=== PATIENT | female | born 1980 | race Caucasian/White ===

== ENCOUNTER 2019-05-15 05:38 | Day surgery (SDC) | payer BC ==
[2019-05-15] MEDS ORDERED: Morphine 4 MG/ML VIAL ONE ×2 (05:53→12:01)
[2019-05-15] MEDS ORDERED: Ketorolac Tromethamine 30 MG/ML VIAL ONE (05:53)
[2019-05-15] MEDS ORDERED: Ondansetron PF 4 MG/2 ML Vial ONE ×2 (05:53→12:01)
[2019-05-15 06:18] LABS: BHCG - Serum Negative (NEGATIVE); Pregs Control Background? CLEAR/WHITE (CLR/WHITE); Pregs Control Bar Appear? YES (CONTROL BAR)
[2019-05-15 06:19] LABS: Mean Corpuscular HGB CONC 33.6 g/dL (32.0-36.0); Mean Corpuscular Hemoglobin 29.3 pg (27.0-31.0); Mean Corpuscular Volume 87.2 fL (78.0-98.0); Mean Platelet Volume 6.2 fL (7.4-10.4); Platelet Count 309 thou/uL (130-400); RBC Distribution Width 11.6 % (11.5-14.5); Red Blood Cell (RBC) Count 4.43 mill/uL (4.20-5.40); White Blood Cell (WBC) Count 17.6 thou/uL (4.8-10.8)
[2019-05-15 06:33] LABS: ALT (SGPT) 11 U/L (8-55); AST (SGOT) 21 U/L (5-34); Albumin 4.9 g/dL (3.5-5.0); Alkaline Phosphatase 46 U/L (40-150); Anion Gap 16 mmol/L (10-20); BUN (Urea Nitrogen) 17 mg/dL (7.0-18.7); Bilirubin, Total 0.7 mg/dL (0.2-1.2); Calc. Creatinine Clearance 0 mL/min (70-130); Carbon Dioxide 21 mmol/L (22-29); Chloride 101 mmol/L (98-107); Estimated GFR-MDRD 84; Globulin 3.1 g/dL (2.4-3.5); Glucose 110 mg/dL (70-105); Lipase 40 U/L (8-78); Potassium 3.9 mmol/L (3.5-5.1); Sodium 134 mmol/L (136-145)
[2019-05-15] MEDS ORDERED: Piperacillin/Tazobactam 4.5 GM VIAL ONE (06:46)
[2019-05-15 06:50] LABS: Band 5 % (5-11); MDiff Complete? YES; Monocytes 1 % (0-10); Neutrophil 94 % (42-75); Platelet Morphology Comment Appears Adequate
[2019-05-15 07:15] LABS: Bilirubin Negative (Negative); Blood, Urine Negative (Negative); Clarity Clear (Clear); Glucose, Urine (Dipstick) Normal (Negative); Leukocyte Negative Leu/uL (Negative); Nitrite Negative (Negative); Protein, Urine (Dipstick) Negative (Neg-Trace); Urobilinogen Normal mg/dL (Less than 2)
--- NOTE | 2019-05-15 07:50 | CT ---
ABDOMEN AND PELVIS CT WITH CONTRAST: Date: 05/15/19 CLINICAL HISTORY: Periumbilical pain. No prior comparison. TECHNIQUE: Per ordering physician request, a contrast enhanced CT abdomen and pelvis is performed with utilizati on of IV contrast, without enteric contrast which does preclude reliable assessment of the bowel. FINDINGS: There is subtle subpleural nodularity of each lung base, incidentally noted. No acute abnormalities o f the solid abdominal organs are identified. There is a nidus of inflammation at the right lower quad rant and there is indistinctness of the unopacified appendix within this region, which is in part due to absence of enteric contrast, although there is evidence to indicate periappendiceal fat stranding , which does obscure portions of the confines of the appendiceal wall. This region, grossly measures 9 mm, indicating mild dilatation of the appendix. There is a moderate volume of retained fecal materi al in the colon. The osseous structures are intact. No free air is visualized. Physiologic changes of the uterus and adnexa are demonstrated with trace free pelvic fluid. IMPRESSION: CT findings indicate acute appendicitis. Recommend surgical consultation. Notification of report made available at 0636 hours, 05/15/19. CODE CR. POS: JULIUS
--- NOTE | 2019-05-15 07:59 | HP ---
SURGEON: Dr. Jara. HISTORY OF PRESENT ILLNESS: The patient is a 38-year-old female who presented to the emergency department this morning complaining of periumbilical abdominal pain that started overnight. The patient also reported she had back pain. She denies any nausea at current times, but she did vomit. She reported 4 to 5 times overnight, stated that emesis was the food and water that she had previously consumed. She denies fevers, but reports some chills overnight. Last bowel movement was last night. Reported it was a little bit hard. She has voided since she has been in the hospital and she denies dysuria or hematuria. REVIEW OF SYSTEMS: All additional 10-point review of systems negative except as indicated above. PAST MEDICAL HISTORY: Anemia. MEDICATIONS: [id number] iron replacement. PAST SURGICAL HISTORY: She has had four C-sections without complications. SOCIAL HISTORY: The patient is a mother of 5 and denies tobacco, drug, and alcohol use. ALLERGIES: NO KNOWN DRUG ALLERGIES. PHYSICAL EXAMINATION: VITAL SIGNS: Temperature 99.9, pulse 87, respirations 18, oxygen saturation 100% on room air, blood pressure 107/60. GENERAL: Well-appearing young female, sitting up in bed with no signs of acute distress. PULMONARY: Equal chest rise and fall. Clear breath sounds bilaterally. No signs of acute respiratory distress. CARDIAC: Regular rate and rhythm. No murmurs, gallops, or rubs. GASTROINTESTINAL: Abdomen is soft, mildly tender in the bilateral lower quadrants and nondistended. No signs of peritonitis. EXTREMITIES: 2+ pulses in all extremities. No significant swelling noted. Gross motor and sensation are intact. NEUROLOGIC: GCS is 15. Pupils equal, round, reactive to light. The patient is alert and oriented x3. LABORATORY FINDINGS: White count 17.6, hemoglobin 13.0, hematocrit 38.6, platelets 309. Sodium 134, potassium 3.9, chloride 101, carbon dioxide 21, BUN 17, creatinine 0.77, glucose 100, total bilirubin 0.7, AST 21, ALT 11, lipase 40. Serum negative. UA negative. DIAGNOSTIC FINDINGS: CT of the abdomen and pelvis was completed, which demonstrated acute appendicitis. ASSESSMENT: Acute appendicitis. PLAN: Dr. Jara is to take the patient to the OR today to complete laparoscopic appendectomy. The procedure was discussed with the patient and she has agreed. She has consented to the procedure. We did discuss the risks and benefits of the procedures, and she reported she understood at that time. We answered all questions. She stated she had no further questions. The patient was discussed with Dr. Jara before this dictation. Job ID: [id number]
[2019-05-15] MEDS ORDERED: ISOVUE-370 76%-LOCM 1 ML ONE (13:27)
[2019-05-15] MEDS ORDERED: Fentanyl 100 MCG/2 ML VIAL ONE (14:10)
[2019-05-15] MEDS ORDERED: Bupivacaine/Epinephrine 0.25% 30 ML VIAL ONE (14:16)
[2019-05-15] MEDS ORDERED: cefOXitin 2 GM VIAL ONE (16:21)
--- NOTE | 2019-05-15 17:23 | OP ---
DATE OF PROCEDURE: 05/15/2019 PREOPERATIVE DIAGNOSIS: Acute appendicitis. POSTOPERATIVE DIAGNOSIS: Acute appendicitis. PROCEDURE PERFORMED: Laparoscopic appendectomy. ANESTHESIA: General endotracheal. ESTIMATED BLOOD LOSS: 5 mL. FLUIDS GIVEN: 500 mL crystalloids. COUNTS: Sponge and instrument counts were verified as correct x2. COMPLICATIONS: None apparent at time of operation. INDICATIONS FOR OPERATION: A 38-year-old woman presented with insidious onset periumbilical to right lower quadrant abdominal pain. Clinical and radiographic examination was consistent with acute appendicitis for which the patient was brought to the operating room for appendectomy. Findings are consistent with dilated suppurative, but nonperforated appendix. Informed consent was obtained from the patient, who was brought to the operating room and placed in supine position. Following general anesthesia, abdomen was sterilely prepped and draped in usual fashion. The skin below the umbilicus was infiltrated at 0.25% Marcaine with epinephrine. A small curvilinear infraumbilical incision was made using 11 scalpel. Umbilical stalk grasped with Carol Ann and elevated. Veress needle was inserted through the incision and placed in the peritoneal cavity through which the abdomen was insufflated with 3 L of CO2 gas noting intra-abdominal pressure of 2 mmHg. Following abdominal insufflation, Veress needle was removed and a 5 mm trocar introduced using a Visiport under laparoscopy. Laparoscopy confirmed proper placement of the port, no injuries to underlying structures. Additional laparoscopy revealed right lower quadrant obscured by omental adhesions. Under direct laparoscopy, two 5 mm suprapubic and left lower quadrant ports were placed after the overlying skin were infiltrated with 0.25% Marcaine with epinephrine and appropriate incision was made. The patient was placed in a Trendelenburg position, rotated to her left. I introduced Prestige grasper through the left lower quadrant port site using this to bluntly take down omental adhesions to reveal an intrapelvic retrocecal appendix. Appendix was dissected free from surrounding structures bluntly. I introduced the Endo Pearcy forceps through the suprapubic port site grasping the appendix, which was elevated. Using LigaSure device, the mesoappendix was sterilely divided down to the base with good hemostasis. The appendix itself was divided in the appendicocecal junction between endo-loops. The appendix was delivered of the abdominal cavity using the EndoCatch. Operative site was inspected for good hemostasis. Finding no other pathology, laparoscopy was terminated. Fascia of the left lower quadrant was closed using 2-0 Vicryl suture with a UR6 needle. Abdomen was desufflated and all ports and instruments removed and accounted for. Skin incision was closed using 4-0 Monocryl suture in subcuticular fashion. Dermabond was applied over incisional closure. The patient tolerated the operation without any apparent complication and was returned to the recovery room in a satisfactory condition. Job ID: [id number]
== END 2019-05-15 18:45 | disposition home or self-care (01) ==
LOC: ERS 05:38 → SDC 10:00
PROVIDERS: ATTEND Surgery
PROC: 0DTJ4ZZ Resection of Appendix, Percutaneous Endoscopic Approach (ICD-10-PCS; principal; 2019-05-15)
DX: K35.80 Unspecified acute appendicitis (principal); K66.0 Peritoneal adhesions (postprocedural) (postinfection); D64.9 Anemia, unspecified
CPT/HCPCS: 74177; 80053; 81003; 83690; 84703; 85025; 88304; 96361; 96365; 96375; 96376; J0131; J0694; J1885; J2270; J2405; J2543; J3010